=== PATIENT | male | born 1935 | race Caucasian/White ===

== ENCOUNTER → 2016-10-16 | Outpatient (REF) | payer MEDICARE | LOC: M LAB REF 16:17 | PROVIDERS: ATTEND Nurse Practitioner Family | DX: I48.0 Paroxysmal atrial fibrillation (principal) ==

== ENCOUNTER → 2016-11-19 | Day surgery (SDC) | payer MEDICARE ==
[~2016-11-19] VITALS: Ht 185.4 cm; Wt 108.9 kg
[~2016-11-19] MED LIST: ALLO10TA PO; AMIO200T37 PO; LIDOCAINE 2% INJ 100 MG/5 ML SDV (FOR ANES.) As Ordered ONE; LOSA100T37 PO; LR 1,000 ML IV SCH; METO50TA2 PO; OMEP20CA3 PO; PRAV40TA2 PO; PROPOFOL 200 MG/20 ML VIAL As Ordered ONE; TORS5TAB2 PO; XARE20TA PO
--- NOTE | 2016-11-19 07:50 | RO ---
DATE OF SERVICE: 11/19/2016 PREPROCEDURE DIAGNOSIS: Atrial fibrillation. POSTPROCEDURE DIAGNOSIS: PROCEDURE: DC cardioversion. SURGEON: Dr. Jamar Richards. HOUSING RELOCATION: None ANESTHESIA: Provided by Tony Manriquez CRNA. ESTIMATED BLOOD LOSS: None BRIEF HISTORY: Mr. Silveira is an 81-year-old man who has persistent atrial fibrillation. It was detected in September 2016 as a relapse after he was maintaining sinus rhythm for well over a year. He did not tolerate the arrhythmia well and experienced significant decrease in exertional tolerance. He was given oral amiodarone and continued his chronic anticoagulation with Xarelto. After approximately 4 weeks of amiodarone loading, he is being brought for DC cardioversion. The nature of the procedure as possible complications were discussed with the patient on outpatient basis. The procedure was performed in recovery room. He received total 100 mg of IV propofol. When appropriate level sedation was achieved, he was cardioverted using one shock with 200 joules of energy and defibrillator patches applied in anterior position in synchronized mode. It led to hindu of sinus rhythm. He was relatively bradycardic after the cardioversion with heart rate approximately 50 beats per minute. He will be discharged home when the effect of sedation will wean off. I will make medication adjustments: I am going to reduce amiodarone to just 200 mg a day. He is currently on 50 mg of metoprolol twice a day and I am going to eliminate the beta danay completely. We will see him in followup within 1 week. LISA
[2016-11-19 08:50] VITALS: BP 125/63
--- NOTE | 2016-11-20 22:05 | ECGEPIP ---
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
--- NOTE | 2016-11-20 22:06 | ECGEPIP ---
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
== END | disposition home or self-care (01) ==
LOC: M SDC 05:43
PROVIDERS: ATTEND Internal Medicine Cardiovascular Disease
DX: I48.91 Unspecified atrial fibrillation (principal); I25.10 Atherosclerotic heart disease of native coronary artery without angina pectoris; I10 Essential (primary) hypertension; Z79.01 Long term (current) use of anticoagulants; Z79.899 Other long term (current) drug therapy

== ENCOUNTER → 2016-12-14 | Outpatient (CLI) | payer MEDICARE ==
[~2016-12-14] MED LIST changes: -LIDOCAINE 2% INJ 100 MG/5 ML SDV (FOR ANES.) As Ordered ONE; -LR 1,000 ML IV SCH; -PROPOFOL 200 MG/20 ML VIAL As Ordered ONE
--- NOTE | 2016-12-14 10:22 | REP ---
CHEST, TWO VIEWS: HISTORY: Amiodarone. COMPARISON: 01/30/2014. Linear densities are present in the left lower lobe consistent with scar. The right lung is clear. The heart is normal in size. The pulmonary vasculature is normal in appearance. The bony structure is intact. IMPRESSION: Left lower lobe scar. Signed by Ash Porter MD 12/14/2016 10:24 A
--- NOTE | 2016-12-14 10:27 | PFTRPT ---
Site: [facility], [address] [place], [address] ID: [id number] Name: LUIS FERNANDO DURANJUAN HENAO Doctor: MD Quinteros Collins Tech: Britta SHABAZZ RRT Age: 81 Sex: Male Race: Height: 73.00 Inches Weight: 245.00 Lbs BSA: 2.35 Diagnosis: AMIODARONE USE test meet the ATS standards for acceptability and repeatability. Pre-Bronch Post-Bronch Pred Actual %Pred Actual %Chng SPIROMETRY FVC (L) 4.45 3.32 74 FEV1 (L) 3.17 2.52 79 FEV1/FVC (%) 71 76 106 FEF 25% (L/sec) 7.60 5.68 74 FEF 50% (L/sec) 4.04 2.49 61 FEF 75% (L/sec) 1.08 0.74 68 FEF 25-75% (L/sec) 2.16 2.01 92 FEF Max (L/sec) 7.65 6.41 83 FIVC (L) 3.09 FIF 50% (L/sec) 4.14 3.80 91 FIF Max (L/sec) 4.01 MVV (L/min) 123 86 69 LUNG VOLUMES SVC (L) 4.81 3.41 70 IC (L) 3.47 2.73 78 ERV (L) 1.34 0.68 50 TGV (L) 4.20 3.34 79 RV (Pleth) (L) 2.86 2.67 93 TLC (Pleth) (L) 7.67 6.08 79 RV/TLC (Pleth) (%) 39 44 112 DIFFUSION DLCOunc (ml/min/mmHg) 24.62 25.58 103 DL/VA (ml/min/mmHg/L) 3.21 4.20 130 VA (L) 7.67 6.09 79 AIRWAYS RESISTANCE Raw (cmH2O/L/s) 1.45 1.57 108 Gaw (L/s/cmH2O) 1.03 0.64 62 sRaw (cmH2O*s) 4.76 6.29 132 sGaw (1/cmH2O*s) 0.20 0.16 79
== END ==
LOC: M CARPUL 09:41
PROVIDERS: ATTEND Internal Medicine
DX: Z79.899 Other long term (current) drug therapy (principal); J98.4 Other disorders of lung

== ENCOUNTER → 2016-12-17 | Outpatient (CLI) | payer MEDICARE ==
[~2016-12-17] MED LIST changes: +ISOVUE-370 76% 100ML VIAL (Q9967) As Ordered ONE
--- NOTE | 2016-12-17 09:32 | REP ---
CT NECK WITH CONTRAST: HISTORY: Mucosal ulceration. A small 6 mm right internal laryngocele is present. The naso-, suzi-, and hypopharynx and subglottic trachea are normal in appearance. The salivary and thyroid glands are normal. Small lymph nodes less than 1 cm in size are present in the internal jugular chains, posterior triangles, submandibular and submental areas. Atherosclerotic calcification is present at the carotid bifurcations. Degenerative change is present in the cervical spine. The lung apices are clear. The visualized sinuses are clear. IMPRESSION: Small 6 mm right internal laryngocele. Signed by Ash Porter MD 12/17/2016 09:35 A
== END ==
LOC: M RAD 08:19
PROVIDERS: ATTEND Otolaryngology
DX: K12.39 Other oral mucositis (ulcerative) (principal)
CPT/HCPCS: 70491; Q9967

== ENCOUNTER → 2017-01-04 | Outpatient (REF) | payer MEDICARE ==
[~2017-01-04] MED LIST changes: -ISOVUE-370 76% 100ML VIAL (Q9967) As Ordered ONE
== END ==
LOC: M LAB REF 16:49
PROVIDERS: ATTEND Otolaryngology
DX: K12.39 Other oral mucositis (ulcerative) (principal)

== ENCOUNTER → 2017-03-23 | Outpatient (REF) | payer MEDICARE ==
[~2017-03-23] MED LIST changes: -LOSA100T37 PO; +LOSA100T5 PO; -METO50TA2 PO; +METO50TA7 PO
[2017-03-23 13:54] LABS: INR 1.11
== END ==
LOC: M LABDRAW1 13:13
PROVIDERS: ATTEND Physical Medicine & Rehabilitation
DX: Z01.818 Encounter for other preprocedural examination (principal)

== ENCOUNTER → 2017-07-22 | Outpatient (REF) | payer MEDICARE | LOC: M LAB REF 18:56 | PROVIDERS: ATTEND Otolaryngology | DX: K12.39 Other oral mucositis (ulcerative) (principal) ==

== ENCOUNTER → 2017-08-10 | Outpatient (REF) | payer MEDICARE ==
[2017-08-10 16:44] LABS: BLOOD UREA NITROGEN 17 MG/DL (7-18); GLOMERULAR FILTRATION RATE > 60.0 (>35)
== END ==
LOC: M LABDRAW1 15:39
DX: S01.411A Laceration without foreign body of right cheek and temporomandibular area, initial encounter (principal); Y92.89 Other specified places as the place of occurrence of the external cause; Y93.89 Activity, other specified; Y99.8 Other external cause status

== ENCOUNTER 2018-05-30 05:58 | Day surgery (SDC) | payer MEDICARE ==
[2018-05-30] MEDS ORDERED: LIDOCAINE 1% MDV 20ML VIAL SQ (06:00)
[2018-05-30] MEDS ORDERED: LR 1,000 ML IV (07:00)
[2018-05-30] MEDS ORDERED: PROPOFOL 200 MG/20 ML VIAL As Ordered (07:15)
[2018-05-30] MEDS ORDERED: LIDOCAINE 2% INJ 100 MG/5 ML SDV (FOR ANES.) As Ordered (07:16)
[2018-05-30] MEDS: ENOXAPARIN 100MG/1ML SYRINGE (J1650) SC (08:30)
== END 2018-05-30 08:40 | disposition home or self-care (01) ==
LOC: M SDC 05:58
DX: I48.0 Paroxysmal atrial fibrillation (principal); I44.0 Atrioventricular block, first degree; I42.9 Cardiomyopathy, unspecified; I11.9 Hypertensive heart disease without heart failure; E78.00 Pure hypercholesterolemia, unspecified; K21.9 Gastro-esophageal reflux disease without esophagitis; R06.02 Shortness of breath; M12.9 Arthropathy, unspecified; R06.83 Snoring; G47.33 Obstructive sleep apnea (adult) (pediatric); Z96.1 Presence of intraocular lens; Z79.899 Other long term (current) drug therapy
CPT/HCPCS: 92960

== ENCOUNTER → 2018-07-13 | Outpatient (REF) | payer MEDICARE ==
[2018-07-13 13:18] LABS: FERRITIN 11 NG/ML (26-388); IRON (FE) 50 UG/DL (65-175); TOTAL IRON BINDING CAPACITY 356 UG/DL (250-450)
[2018-07-13 13:25] LABS: VITAMIN B12 LEVEL 329 PG/ML (247-911)
[2018-07-13 13:26] LABS: RETIC HEMOGLOBIN EQUIVALENT 28.4 pg (24-36); RETICULOCYTE # 42.5 10^9/L (17-77)
[2018-07-13 13:37] LABS: HEMATOCRIT 36.1 % (42.0-52.0)
[2018-07-15 12:05] LABS: PRETREATED FOLATE FOR RBCFOL 13.2 NG/ML; RBC FOLATE 767 NG/ML (280-791)
== END ==
LOC: M LAB REF 12:52
DX: D64.9 Anemia, unspecified (principal)
CPT/HCPCS: 83550

== ENCOUNTER → 2019-01-19 | Outpatient (REF) | payer MEDICARE ==
[~2019-01-19] MED LIST changes: +MAGN64TASA PO
== END ==
LOC: M LAB REF 13:06
PROVIDERS: ATTEND Internal Medicine Pulmonary Disease
DX: R05 Cough (principal)

== ENCOUNTER → 2019-10-11 | Outpatient (CLI) | payer MEDICARE ==
[~2019-10-11] MED LIST changes: +ISOVUE-370 76% 100ML VIAL (Q9967) As Ordered ONE; +OMEP1CAP73 PO; -OMEP20CA3 PO
--- NOTE | 2019-10-11 09:52 | REP ---
Clinical: Pulmonary fibrosis. Technique: Axial contrast enhanced images from the thoracic inlet to the upper abdomen with coronal and sagittal re-formations using 75 ml Isovue 370 intravenous contrast material. Comparison: 09/24/2018, 04/14/2018. Findings: The bilateral lung jeffery are relatively well aerated, symmetric and essentially clear. Minimal age-related interstitial changes are appreciated including trace scarring in the right middle lobe and lingula. Calcified granuloma in the right middle lobe. No significant nodule or mass lesion appreciated. No consolidation. No effusion. No pneumothorax. No adenopathy. Mediastinum demonstrates atherosclerotic changes to the thoracic aorta and coronary arteries without aortic aneurysm/dissection or cardiomegaly. No pericardial effusion. Impression: Minimal stable chronic age-related changes unchanged through 04/14/2018. No acute/significant mediastinal or pleuroparenchymal process appreciated. Electronically Signed by Rachid Sams MD 10/11/2019 08:26 A
== END ==
LOC: M RAD 07:15
PROVIDERS: ATTEND Internal Medicine Pulmonary Disease
DX: J84.10 Pulmonary fibrosis, unspecified (principal)
CPT/HCPCS: 71260; Q9967

== ENCOUNTER → 2020-03-11 | Outpatient (REF) | payer MEDICARE ==
[~2020-03-11] MED LIST changes: -ISOVUE-370 76% 100ML VIAL (Q9967) As Ordered ONE
== END ==
LOC: M LAB REF 17:16
PROVIDERS: ATTEND Internal Medicine
DX: M10.072 Idiopathic gout, left ankle and foot (principal)

== ENCOUNTER → 2020-06-21 | Outpatient (CLI) | payer MEDICARE ==
--- NOTE | 2020-06-21 11:39 | REP ---
INDICATION: MASS. COMPARISON: None. TECHNIQUE: Three views obtained. FINDINGS: There is no acute fracture or dislocation. There is mild narrowing at the acromioclavicular and glenohumeral joints, with mild spurring. Tiny calcification along the superior margin of the humeral head is likely a tendinous calcification. There is focal soft tissue bulging superior to the acromioclavicular joint. IMPRESSION: Mild degenerative changes. Focal soft tissue bulging superior to the acromioclavicular joint. Further evaluation may be made with MRI of the right shoulder. <Electronically signed by Mika Reyes > 06/21/20 [id number]
== END ==
LOC: M WUC 09:49
PROVIDERS: ATTEND Nurse Practitioner Adult Health
DX: M19.011 Primary osteoarthritis, right shoulder (principal); R22.31 Localized swelling, mass and lump, right upper limb

== ENCOUNTER → 2020-09-11 | Outpatient (REF) | payer MEDICARE | LOC: M LAB REF 12:07 | PROVIDERS: ATTEND Internal Medicine | DX: M10.072 Idiopathic gout, left ankle and foot (principal) ==

== ENCOUNTER → 2021-10-06 | Outpatient (CLI) | payer MEDICARE | LOC: M WUC 15:02 | PROVIDERS: ATTEND Physician Assistant Medical | DX: M25.711 Osteophyte, right shoulder (principal); R93.89 Abnormal findings on diagnostic imaging of other specified body structures ==

== ENCOUNTER → 2022-07-30 | Outpatient (REF) | payer MEDICARE ==
[2022-07-30 19:26] LABS: BLOOD UREA NITROGEN 24 MG/DL (9-23); CARBON DIOXIDE LEVEL 30 MMOL/L (20-31); CHLORIDE LEVEL 103 MMOL/L (98-107); CREATININE FOR GFR 1.11 MG/DL (0.70-1.30); GLOMERULAR FILTRATION RATE > 60.0 (>35); GLUCOSE, FASTING 98 MG/DL (74-106); POTASSIUM SERUM 4.1 MMOL/L (3.5-5.1); SODIUM LEVEL 140 MMOL/L (136-145)
[2022-07-30 19:35] LABS: HEMATOCRIT 43.6 % (42.0-52.0); HEMOGLOBIN 14.5 g/dl (13.5-17.5); MEAN CORPUSCULAR HEMOGLOBIN 31.8 pg (27.0-33.0); MEAN CORPUSCULAR HGB CONC 33.3 g/dl (32.0-36.5); MEAN CORPUSCULAR VOLUME 95.6 fl (80.0-96.0); PLATELET COUNT, AUTOMATED 246 10^3/uL (150-450); RED BLOOD COUNT 4.56 10^6/uL (4.30-6.10); WHITE BLOOD COUNT 6.9 10^3/uL (4.0-10.0)
== END ==
LOC: M LABDRWCV 16:56
PROVIDERS: ATTEND Nurse Practitioner Family
DX: I42.9 Cardiomyopathy, unspecified (principal); Z79.899 Other long term (current) drug therapy

== ENCOUNTER → 2022-09-14 | Outpatient (CLI) | payer MEDICARE | LOC: M WUC 11:45 | PROVIDERS: ATTEND Internal Medicine | DX: R05.9 Cough, unspecified (principal); I51.7 Cardiomegaly; I70.0 Atherosclerosis of aorta; I77.819 Aortic ectasia, unspecified site ==

== ENCOUNTER → 2022-12-16 | Outpatient (REF) | payer MEDICARE | LOC: M LABDRWCV 17:06 | PROVIDERS: ATTEND Nurse Practitioner Family | DX: I50.20 Unspecified systolic (congestive) heart failure (principal) ==

== ENCOUNTER → 2023-03-22 | Outpatient (REF) | payer MEDICARE ==
[2023-03-22 17:14] LABS: URIC ACID 7.3 MG/DL (3.7-9.2)
[2023-03-22 17:17] LABS: FOLATE 10.7 NG/ML (>5.4)
== END ==
LOC: M LAB REF 16:14
PROVIDERS: ATTEND Internal Medicine
DX: G60.9 Hereditary and idiopathic neuropathy, unspecified (principal); M27.2 Inflammatory conditions of jaws

== ENCOUNTER → 2023-09-27 | Outpatient (REF) | payer MEDICARE ==
[2023-09-27 14:21] LABS: URIC ACID 7.1 MG/DL (3.7-9.2)
== END ==
LOC: M LAB REF 12:58
PROVIDERS: ATTEND Internal Medicine
DX: M10.072 Idiopathic gout, left ankle and foot (principal); E26.1 Secondary hyperaldosteronism

== ENCOUNTER → 2023-11-22 | Outpatient (CLI) | payer MEDICARE | LOC: M WUC 09:48 | PROVIDERS: ATTEND Student in an Organized Health Care Education/Training Program | DX: M25.522 Pain in left elbow (principal) ==

== ENCOUNTER → 2024-01-26 | Outpatient (REF) | payer MEDICARE ==
[2024-01-26 18:17] LABS: HEMATOCRIT 42.3 % (42.0-52.0); MEAN CORPUSCULAR HEMOGLOBIN 31.4 pg (27.0-33.0); MEAN CORPUSCULAR HGB CONC 33.1 g/dl (32.0-36.5); MEAN CORPUSCULAR VOLUME 94.8 fl (80.0-96.0); PLATELET COUNT, AUTOMATED 242 10^3/uL (150-450); RED BLOOD COUNT 4.46 10^6/uL (4.30-6.10); WHITE BLOOD COUNT 5.1 10^3/uL (4.0-10.0)
[2024-01-26 18:20] LABS: BLOOD UREA NITROGEN 22 MG/DL (9-23); CALCIUM LEVEL 9.2 MG/DL (8.3-10.6); CARBON DIOXIDE LEVEL 29 MMOL/L (20-31); CHLORIDE LEVEL 103 MMOL/L (98-107); CREATININE FOR GFR 1.14 MG/DL (0.70-1.30); GLOMERULAR FILTRATION RATE > 60.0 (>35); GLUCOSE, FASTING 123 MG/DL (74-106); POTASSIUM SERUM 4.2 MMOL/L (3.5-5.1); SODIUM LEVEL 137 MMOL/L (136-145)
== END ==
LOC: M LABDRWCV 16:49
PROVIDERS: ATTEND Nurse Practitioner Family
DX: I42.9 Cardiomyopathy, unspecified (principal); I50.20 Unspecified systolic (congestive) heart failure

== ENCOUNTER → 2024-03-02 | Outpatient (REF) | payer MEDICARE | LOC: M LAB REF 13:06 | PROVIDERS: ATTEND Internal Medicine | DX: I13.0 Hypertensive heart and chronic kidney disease with heart failure and stage 1 through stage 4 chronic kidney disease, or unspecified chronic kidney disease (principal); I48.21 Permanent atrial fibrillation; I50.42 Chronic combined systolic (congestive) and diastolic (congestive) heart failure ==

== ENCOUNTER → 2024-05-11 | Outpatient (REF) | payer MEDICARE | LOC: M LAB REF 13:03 | PROVIDERS: ATTEND Internal Medicine | DX: I50.42 Chronic combined systolic (congestive) and diastolic (congestive) heart failure (principal) ==

== ENCOUNTER → 2024-09-13 | Outpatient (REF) | payer MEDICARE | LOC: M LAB REF 13:10 | PROVIDERS: ATTEND Internal Medicine | DX: I50.42 Chronic combined systolic (congestive) and diastolic (congestive) heart failure (principal); I48.21 Permanent atrial fibrillation; I77.810 Thoracic aortic ectasia ==

== ENCOUNTER → 2024-09-25 | Outpatient (CLI) | payer MEDICARE | LOC: M WUC 09:14 | PROVIDERS: ATTEND Nurse Practitioner Family | DX: J20.9 Acute bronchitis, unspecified (principal); R05.9 Cough, unspecified; I70.0 Atherosclerosis of aorta; I51.7 Cardiomegaly ==